=== PATIENT | male | born 1955 | race Caucasian/White ===

== ENCOUNTER → 2018-08-21 | Outpatient (CLI) | payer OTHER ==
[~2018-08-21] MED LIST: AMITRIPTYLINE100 MG PO; HYDROCODON PO; LOSARTAN PO; LUNESTA PO; METFORMIN PO; VICTOZA SQ
--- NOTE | 2018-08-21 14:58 | Diagnostic Imaging Report ---
RIGHT HEEL - 2 IMAGES HISTORY: Chronic ulcer COMPARISON: None available. FINDINGS: Bones: No acute displaced fracture. Periosteal reaction of the plantar surface of the dorsal calcaneus underlying the region of the soft tissue defect. Soft tissues: Soft tissue defect at the plantar aspect of the heel. Diffuse scattered atherosclerotic vascular calcifications. IMPRESSION: Calcaneal periostitis is suspicious for osteomyelitis underlying the region of the skin defect, a MRI of the hindfoot with and without contrast may be obtained to further evaluate the extent of involvement. Signed by: Dr. Esau Cardozo D.O., M.M.M. on 08/21/2018 2:54 PM
[2018-08-21 16:05] LABS: BASOPHILS # (AUTO) 0.1 (0.0-0.1); BASOPHILS % 0.6 % (0.0-1.0); EOSINOPHILS # (AUTO) 0.6 (0.0-0.4); EOSINOPHILS % 6.6 % (0.0-6.0); HEMATOCRIT 41.2 % (38.2-49.6); HEMOGLOBIN 13.7 g/dL (14.0-18.0); LYMPHOCYTES # (AUTO) 1.9 (1.0-3.2); LYMPHOCYTES % 22.9 % (18.0-39.1); MEAN CORPUSCULAR HEMOGLOBIN 31.3 pg (28-32); MEAN CORPUSCULAR HGB CONC 33.3 g/dL (31-35); MEAN CORPUSCULAR VOLUME 94.1 fL (81-99); MONOCYTES # (AUTO) 0.5 (0.2-0.8); MONOCYTES % 6.5 % (4.4-11.3); NEUTROPHILS # (AUTO) 5.2 (2.1-6.9); PLATELET COUNT 193 x10e3/uL (140-360); RED BLOOD COUNT 4.38 x10e6/uL (4.3-5.7); RED CELL DISTRIBUTION WIDTH 13.4 % (11.7-14.4)
[2018-08-21 16:32] LABS: ALANINE AMINOTRANSFERASE 9 IU/L (0-55); ALBUMIN 3.7 g/dL (3.5-5.0); ALBUMIN/GLOBULIN RATIO 1.2 (0.8-2.0); ALKALINE PHOSPHATASE 111 IU/L (40-150); ANION GAP 15.3 mmol/L (8-16); BLOOD UREA NITROGEN 19 mg/dL (7-26); BUN/CREATININE RATIO 21 (6-25); CALCIUM 9.4 mg/dL (8.4-10.2); CARBON DIOXIDE 22 mmol/L (22-29); CHLORIDE 106 mmol/L (98-107); CREATININE, SERUM 0.89 mg/dL (0.72-1.25); EST GLOMERULAR FILTRATION RATE > 60 ML/MIN (60-); GLUCOSE 82 mg/dL (74-118); POTASSIUM 4.3 mmol/L (3.5-5.1); SODIUM 139 mmol/L (136-145)
[2018-08-21 16:44] LABS: ERYTHROCYTE SEDIMENTATION RATE 11 mm/hr (0-13)
== END ==
LOC: WCC 13:05
PROVIDERS: ATTEND Family Medicine
DX: E11.621 Type 2 diabetes mellitus with foot ulcer (principal); E11.9 Type 2 diabetes mellitus without complications; L97.419 Non-pressure chronic ulcer of right heel and midfoot with unspecified severity; G99.0 Autonomic neuropathy in diseases classified elsewhere; I10 Essential (primary) hypertension; G47.33 Obstructive sleep apnea (adult) (pediatric); J45.909 Unspecified asthma, uncomplicated; N20.0 Calculus of kidney; W45.0XXA Nail entering through skin, initial encounter
CPT/HCPCS: 36415; 80053; 83036; 84134; 85025; 85651; 86140

== ENCOUNTER → 2018-08-23 | Outpatient (CLI) | payer OTHER | LOC: WCC 09:56 | PROVIDERS: ATTEND Podiatrist Foot & Ankle Surgery | DX: E11.621 Type 2 diabetes mellitus with foot ulcer (principal); E11.9 Type 2 diabetes mellitus without complications; L97.419 Non-pressure chronic ulcer of right heel and midfoot with unspecified severity; I10 Essential (primary) hypertension; G47.33 Obstructive sleep apnea (adult) (pediatric); G99.0 Autonomic neuropathy in diseases classified elsewhere; J45.909 Unspecified asthma, uncomplicated; N20.0 Calculus of kidney; W45.0XXA Nail entering through skin, initial encounter ==

== ENCOUNTER → 2018-08-30 | Outpatient (CLI) | payer OTHER | LOC: WCC 12:20 | PROVIDERS: ATTEND Podiatrist Foot & Ankle Surgery | DX: E11.621 Type 2 diabetes mellitus with foot ulcer (principal); E11.9 Type 2 diabetes mellitus without complications; L97.419 Non-pressure chronic ulcer of right heel and midfoot with unspecified severity; G99.0 Autonomic neuropathy in diseases classified elsewhere; I10 Essential (primary) hypertension; G47.33 Obstructive sleep apnea (adult) (pediatric); J45.909 Unspecified asthma, uncomplicated; N20.0 Calculus of kidney; W45.0XXA Nail entering through skin, initial encounter ==

== ENCOUNTER → 2018-09-04 | Outpatient (CLI) | payer OTHER ==
--- NOTE | 2018-09-04 12:26 | Diagnostic Imaging Report ---
PROCEDURE:HEEL RT 3 views dated 09/04/2018 at 11:51 AM INDICATION:Osteomyelitis COMPARISON:Patients [facility], DX, HEEL RT, 08/21/2018, 14:10. FINDINGS:There is vascular calcification present. Soft tissue defect of the plantar aspect of the heel. Soft tissue ulceration is less prominent. Minimal adjacent periosteal reaction of the calcaneus. CONCLUSION:Soft tissue ulceration and minimal periosteal reaction of the calcaneus. Modesto Santiago D.O. Dictated by: Modesto Santiago D.O. on 09/04/2018 at 12:37 Electronically approved by: Modesto Santiago D.O. on 09/04/2018 at 12:37
--- NOTE | 2018-09-04 17:34 | Diagnostic Imaging Report ---
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 Poor healing. Radiopharmaceutical: Tc-99m MDP 28 mCi Comparison: Right heel radiograph 08/21/2018 Following intravenous administration of the radiopharmaceutical, dynamic flow and immediate blood pool images of the feet and ankles followed by 3-hour delayed spot images were obtained. Flow and blood pool images show diffusely symmetric distribution of tracer activity to the feet and ankles with focal increased tracer in the plantar aspect of the right heel. The delayed planar images show a limited area of focal increased tracer along the plantar aspect of the right calcaneus without increased tracer activity within the calcaneus. The area is more limited than the tracer uptake seen on the flow and blood pool images. Impression: No convincing scan evidence of osteomyelitis in the right foot, specifically, none in the right calcaneus. Likely soft tissue inflammation abutting the right calcaneus that may be at the insertion of the plantar fascia, less likely periosteitis. Signed by: Dr. Ashely Rich M.D. on 09/04/2018 5:31 PM
== END ==
LOC: NM 11:00
PROVIDERS: ATTEND Family Medicine
DX: E11.621 Type 2 diabetes mellitus with foot ulcer (principal); L97.419 Non-pressure chronic ulcer of right heel and midfoot with unspecified severity; L98.499 Non-pressure chronic ulcer of skin of other sites with unspecified severity
CPT/HCPCS: 73650; 78315; A9503

== ENCOUNTER → 2018-09-06 | Outpatient (CLI) | payer OTHER | LOC: WCC 14:21 | PROVIDERS: ATTEND Podiatrist Foot & Ankle Surgery | DX: E11.621 Type 2 diabetes mellitus with foot ulcer (principal); E11.9 Type 2 diabetes mellitus without complications; L97.419 Non-pressure chronic ulcer of right heel and midfoot with unspecified severity; I10 Essential (primary) hypertension; G99.0 Autonomic neuropathy in diseases classified elsewhere; G47.33 Obstructive sleep apnea (adult) (pediatric); J45.909 Unspecified asthma, uncomplicated; N20.0 Calculus of kidney; W45.0XXA Nail entering through skin, initial encounter ==

== ENCOUNTER → 2018-09-13 | Outpatient (CLI) | payer OTHER | LOC: WCC 12:25 | PROVIDERS: ATTEND Podiatrist Foot & Ankle Surgery | DX: E11.621 Type 2 diabetes mellitus with foot ulcer (principal); E11.9 Type 2 diabetes mellitus without complications; L97.419 Non-pressure chronic ulcer of right heel and midfoot with unspecified severity; G99.0 Autonomic neuropathy in diseases classified elsewhere; I10 Essential (primary) hypertension; G47.33 Obstructive sleep apnea (adult) (pediatric); J45.909 Unspecified asthma, uncomplicated; N20.0 Calculus of kidney; W45.0XXA Nail entering through skin, initial encounter ==

== ENCOUNTER → 2018-09-17 | Outpatient (CLI) | payer OTHER ==
[2018-09-17 09:02] LABS: INR 0.86; PROTHROMBIN TIME 12.5 seconds (11.9-14.5)
[2018-09-17 09:03] LABS: PARTIAL THROMBOPLASTIN TIME 24.7 seconds (23.8-35.5)
[2018-09-17 09:09] LABS: CREATININE, SERUM 1.27 mg/dL (0.72-1.25)
--- NOTE | 2018-09-17 10:32 | Diagnostic Imaging Report ---
EXAMINATION: CHEST XRAY LINE PLACEMENT INDICATION: Chest PICC placement COMPARISON: None FINDINGS: TUBES and LINES: Right sided PICC terminating in the expected location of the upper SVC. LUNGS: Lungs are well inflated. There is no evidence of pneumonia or pulmonary edema. Mild patchy right basilar opacity, likely atelectasis. PLEURA: No pleural effusion or pneumothorax. HEART AND MEDIASTINUM: The cardiomediastinal silhouette is unremarkable. BONES AND SOFT TISSUES: No acute osseous lesion. Soft tissues are unremarkable. UPPER ABDOMEN: No free air under the diaphragm. IMPRESSION: Right sided PICC terminating in the expected location of the upper SVC. No evidence of pneumothorax. Signed by: Dr. Ranjan Ford MD on 09/17/2018 10:29 AM
== END ==
LOC: DX 08:29
PROVIDERS: ATTEND Internal Medicine Infectious Disease
DX: I70.238 Atherosclerosis of native arteries of right leg with ulceration of other part of lower leg (principal)
CPT/HCPCS: 36415; 36569; 71045; 82565; 84520; 85049; 85610; 85730

== ENCOUNTER → 2018-09-27 | Outpatient (CLI) | payer OTHER | LOC: WCC 12:40 | PROVIDERS: ATTEND Podiatrist Foot & Ankle Surgery | DX: E11.621 Type 2 diabetes mellitus with foot ulcer (principal); E11.9 Type 2 diabetes mellitus without complications; L97.419 Non-pressure chronic ulcer of right heel and midfoot with unspecified severity; I10 Essential (primary) hypertension; G47.33 Obstructive sleep apnea (adult) (pediatric); G99.0 Autonomic neuropathy in diseases classified elsewhere; J45.909 Unspecified asthma, uncomplicated; N20.0 Calculus of kidney; W45.0XXA Nail entering through skin, initial encounter ==

== ENCOUNTER → 2018-10-02 | Outpatient (CLI) | payer OTHER | LOC: WCC 14:57 | PROVIDERS: ATTEND Podiatrist Foot & Ankle Surgery | DX: E11.621 Type 2 diabetes mellitus with foot ulcer (principal); E11.9 Type 2 diabetes mellitus without complications; L97.419 Non-pressure chronic ulcer of right heel and midfoot with unspecified severity; G47.33 Obstructive sleep apnea (adult) (pediatric); G99.0 Autonomic neuropathy in diseases classified elsewhere; I10 Essential (primary) hypertension; J45.909 Unspecified asthma, uncomplicated; N20.0 Calculus of kidney; W45.0XXA Nail entering through skin, initial encounter ==

== ENCOUNTER → 2018-10-11 | Outpatient (CLI) | payer OTHER | LOC: WCC 12:21 | PROVIDERS: ATTEND Podiatrist Foot & Ankle Surgery | DX: E11.621 Type 2 diabetes mellitus with foot ulcer (principal); E11.9 Type 2 diabetes mellitus without complications; L97.419 Non-pressure chronic ulcer of right heel and midfoot with unspecified severity; I10 Essential (primary) hypertension; G99.0 Autonomic neuropathy in diseases classified elsewhere; G47.33 Obstructive sleep apnea (adult) (pediatric); J45.909 Unspecified asthma, uncomplicated; N20.0 Calculus of kidney; W45.0XXA Nail entering through skin, initial encounter ==

== ENCOUNTER → 2018-10-28 | Outpatient (CLI) | payer OTHER | LOC: WCC 13:48 | PROVIDERS: ATTEND Podiatrist Foot & Ankle Surgery | DX: E11.621 Type 2 diabetes mellitus with foot ulcer (principal); E11.9 Type 2 diabetes mellitus without complications; L97.419 Non-pressure chronic ulcer of right heel and midfoot with unspecified severity; G47.33 Obstructive sleep apnea (adult) (pediatric); G99.0 Autonomic neuropathy in diseases classified elsewhere; I10 Essential (primary) hypertension; J45.909 Unspecified asthma, uncomplicated; N20.0 Calculus of kidney; W45.0XXA Nail entering through skin, initial encounter ==